=== PATIENT | female | born 1975 | race Two or more races ===

== ENCOUNTER 2021-11-28 14:22 | Inpatient (IN) | payer MEDICAID, OTHER ==
[~2021-11-28] VITALS: Ht 167.6 cm; Wt 74.4 kg
[2021-11-28] MEDS ORDERED: SODIUM CHLORIDE 0.9% 1,000 ML IV ONE ×2 (16:15→17:30)
[2021-11-28] MEDS ORDERED: MORPHINE SULFATE 4 MG/ML CPJ (NOT FOR IM USE) IV ONE (16:15)
[2021-11-28 16:30] LABS: BASOPHILS % 0.3 % (0.0-2.0); EOSINOPHILS % 0.1 % (0.0-5.0); HEMATOCRIT. 46.8 % (36.0-48.0); HEMOGLOBIN. 15.8 g/dL (12.0-16.0); LYMPHOCYTES % 9.5 % (20.0-50.0); MEAN CORPUSCULAR HEMOGLOBIN 30.5 pg (28.0-32.0); MEAN CORPUSCULAR VOLUME 90.2 fL (81.0-99.0); MEAN PLATELET VOLUME 7.2 fl (7.4-10.4); NEUTROPHILS % 81.1 % (40.0-76.0); PLATELET 188 x1000/uL (130-400); RED BLOOD CELL COUNT 5.19 mill/uL (4.2-5.4); RED CELL DISTRIBUTION WIDTH 13.8 % (11.6-14.6)
[2021-11-28 16:38] LABS: CHLORIDE 98 mEq/L (98-107)
[2021-11-28] MEDS ORDERED: ONDANSETRON HCL 4MG/2ML INJ IV ONE (16:45)
[2021-11-28 16:47] LABS: HCG SCREEN NEGATIVE
[2021-11-28 19:01] LABS: CLARITY URINE CLEAR (CLEAR); COLOR URINE PALE YELLOW (YELLOW)
[2021-11-28 19:02] LABS: KETONES URINE 2+ (NEGATIVE); LEUKOCYTE ESTERASE URINE 1+ (NEGATIVE); NITRITE URINE NEGATIVE (NEGATIVE); OCCULT BLOOD URINE 2+ (NEGATIVE); PROTEIN URINE NEGATIVE (NEGATIVE); UROBILINOGEN URINE 0.2 E.U./dL (0.2-1.0)
[2021-11-28] MEDS ORDERED: CEFTRIAXONE 1 G PREMIX 50 ML IV ONE (19:45)
[2021-11-28] MEDS ORDERED: DOXYCYCLINE HYCLATE 100MG CAPSULE PO ONE (20:30)
[2021-11-28] MEDS ORDERED: METRONIDAZOLE 500 MG PREMIX 100 ML IV ONE (20:30)
[2021-11-28] MEDS ORDERED: CEFTRIAXONE 1 G PREMIX 50 ML IV NR (22:45)
[2021-11-29 00:35] VITALS: BP 112/55
[2021-11-29] MEDS ORDERED: POTASSIUM CHLORIDE 20MEQ TABLET SR PO NR (02:15)
[2021-11-29] MEDS: SODIUM CHLORIDE 0.9% 1,000 ML IV SCH ×2 (03:24→15:13)
[2021-11-29] MEDS: ACETAMINOPHEN 325MG TABLET PO PRN ×2 (03:25→15:12)
[2021-11-29 04:00] VITALS: BP 105/66
[2021-11-29] MEDS ORDERED: ADAL40PE SQ (05:06)
[2021-11-29] MEDS ORDERED: GABA-529 PO (05:06)
[2021-11-29] MEDS ORDERED: CELE50CA PO (05:06)
[2021-11-29] MEDS ORDERED: OMEP10CA5 PO (05:06)
[2021-11-29] MEDS ORDERED: FOLI0.4T6 PO (05:06)
[2021-11-29] MEDS ORDERED: METH2.5T PO (05:06)
[2021-11-29] MEDS ORDERED: CEFTRIAXONE 1 G PREMIX 50 ML IV SCH (06:45)
[2021-11-29 08:00] VITALS: BP 109/69
[2021-11-29] MEDS ORDERED: CEFTRIAXONE 500MG in DEXTROSE 5% WATER 50ML IV SCH (08:00)
[2021-11-29] MEDS: CEFTRIAXONE 1,000 MG in DEXTROSE 5% WATER 50 ML IV SCH (09:27)
[2021-11-29 10:19] LABS: BASOPHILS % 0.5 % (0.0-2.0); EOSINOPHILS % 0.1 % (0.0-5.0); HEMATOCRIT. 40.7 % (36.0-48.0); HEMOGLOBIN. 13.8 g/dL (12.0-16.0); LYMPHOCYTES % 9.7 % (20.0-50.0); MEAN CORPUSCULAR HEMOGLOBIN 30.9 pg (28.0-32.0); MEAN CORPUSCULAR VOLUME 90.9 fL (81.0-99.0); MEAN PLATELET VOLUME 7.5 fl (7.4-10.4); MONOCYTES % 10.4 % (2.0-8.0); NEUTROPHILS % 79.3 % (40.0-76.0); PLATELET 156 x1000/uL (130-400); RED BLOOD CELL COUNT 4.47 mill/uL (4.2-5.4); RED CELL DISTRIBUTION WIDTH 13.9 % (11.6-14.6)
[2021-11-29 10:30] LABS: CHLORIDE 107 mEq/L (98-107)
[2021-11-29 12:00] VITALS: BP 128/68
[2021-11-29] MEDS: METRONIDAZOLE 500 MG PREMIX 100 ML IV SCH ×2 (15:09→21:48)
[2021-11-29] MEDS: PREDNISONE 10MG TABLET PO SCH (15:11)
[2021-11-29] MEDS: PANTOPRAZOLE SODIUM 40 MG/VIAL IV SCH (15:11)
[2021-11-29] MEDS: CELECOXIB 200MG CAPSULE PO SCH (15:12)
[2021-11-29 15:31] VITALS: BP 126/60
[2021-11-29 20:00] VITALS: BP 98/54
[2021-11-29 21:00] LABS: HEPATITIS B SURFACE ANTIGEN NEGATIVE
[2021-11-30] VITALS (7 sets, daily range): BP systolic 94–131; BP diastolic 52–74
[2021-11-30] MEDS: SODIUM CHLORIDE 0.9% 1,000 ML IV SCH (04:45)
[2021-11-30] MEDS: METRONIDAZOLE 500 MG PREMIX 100 ML IV SCH ×2 (06:33→14:00)
[2021-11-30 07:17] LABS: HEMATOCRIT. 36.5 % (36.0-48.0); HEMOGLOBIN. 12.3 g/dL (12.0-16.0); MEAN CORPUSCULAR HEMOGLOBIN 30.6 pg (28.0-32.0); MEAN CORPUSCULAR VOLUME 90.8 fL (81.0-99.0); MEAN PLATELET VOLUME 7.2 fl (7.4-10.4); PLATELET 146 x1000/uL (130-400); RED BLOOD CELL COUNT 4.02 mill/uL (4.2-5.4); RED CELL DISTRIBUTION WIDTH 13.7 % (11.6-14.6)
[2021-11-30] MEDS: CEFTRIAXONE 1,000 MG in DEXTROSE 5% WATER 50 ML IV SCH (08:00)
[2021-11-30 08:06] LABS: CHLORIDE 112 mEq/L (98-107)
[2021-11-30 08:17] LABS: PHOSPHORUS 1.2 mg/dL (2.5-4.9)
[2021-11-30] MEDS: PREDNISONE 10MG TABLET PO SCH (10:00)
[2021-11-30] MEDS: CELECOXIB 200MG CAPSULE PO SCH (10:00)
[2021-11-30] MEDS: PANTOPRAZOLE SODIUM 40 MG/VIAL IV SCH (10:00)
[2021-11-30 12:49] LABS: PLATELET ESTIMATE NORMAL
[2021-11-30] MEDS ORDERED: POTASSIUM PHOS,M-BASIC-D-BASIC 10 MMOL in DEXT 5% WATER 246.6667 ML IV NR (13:30)
[2021-11-30] MEDS ORDERED: SODIUM PHOS,M-BASIC-D-BASIC 10 MM in DEXT 5% WATER 246.6667 ML IV NR (17:30)
[2021-12-01 14:07] LABS: OVA & PARASITE EXAM Final report (.)
== END 2021-11-30 18:36 | disposition home or self-care (01) | DRG 720 ==
LOC: ER 14:22 → 6WST 19:41 → EDBEDREQ 19:47 → EDBEDREQTM 19:47 → ENRESERV 11-29 00:05
PROVIDERS: ADMIT Internal Medicine; ATTEND Internal Medicine
DX: A41.9 Sepsis, unspecified organism (principal); E83.39 Other disorders of phosphorus metabolism; A08.4 Viral intestinal infection, unspecified; D72.821 Monocytosis (symptomatic); M06.9 Rheumatoid arthritis, unspecified; N39.0 Urinary tract infection, site not specified; Z79.631 Long term (current) use of antimetabolite agent; Z88.1 Allergy status to other antibiotic agents
CPT/HCPCS: 36415; 71045; 74176; 76700; 76856; 80048; 80053; 81003; 82270; 83735; 84100; 84703; 85025; 86705; 86709; 86803; 87015; 87045; 87177; 87209; 87340; 87427; 87449; 87493; 93005; 99285; C9113; J0696; J2270; J2405; J3490; J7030; J7060; J7512